=== PATIENT | female | born 1995 | race Caucasian/White ===

== ENCOUNTER 2021-04-18 17:07 | Inpatient (IN) | payer OTHER ==
[~2021-04-18] VITALS: Ht 175.3 cm; Wt 108.9 kg
[~2021-04-18 17:07] MED LIST: IBUPROFEN600 MG PO; NORCO 5-325 TA1 EACH PO; PRENATAL VITAM1 EAC5 PO; PRILOSEC OTC20 MG PO; SINGULAIR10 MG PO; ZYRTEC10 MG PO
[2021-04-18 17:51] LABS: HEMOGLOBIN 10.7 gm/dl (12.3-15.3); RED BLOOD COUNT 3.93 M/UL (4.00-5.10); WHITE BLOOD COUNT 10.5 K/UL (4.5-11.0)
[2021-04-18] MEDS ORDERED: CLARITIN10 M2 PO (17:51)
[2021-04-19] MEDS ORDERED: HYDROCODON-ACE1 EAC4 PO (16:35)
[2021-04-19] MEDS ORDERED: DOCUSATE SODIU100 MG PO (16:35)
[2021-04-19] MEDS ORDERED: IBUPROFEN600 MG PO (16:35)
[2021-04-20 04:45] LABS: HEMOGLOBIN 9.9 gm/dl (12.3-15.3)
== END 2021-04-20 14:48 | disposition home or self-care (01) | DRG 788 ==
LOC: GENOP 17:07 → OB 17:16
PROVIDERS: ADMIT Obstetrics & Gynecology
PROC: 10907ZC Drainage of Amniotic Fluid, Therapeutic from Products of Conception, Via Natural or Artificial Opening (ICD-10-PCS; 2021-04-19)
PROC: 10D00Z1 Extraction of Products of Conception, Low, Open Approach (ICD-10-PCS; principal; 2021-04-19 10:53)
DX: O69.0XX0 Labor and delivery complicated by prolapse of cord, not applicable or unspecified (principal); Z3A.39 39 weeks gestation of pregnancy; Z37.0 Single live birth
CPT/HCPCS: 36415; 81001; 82800; 85014; 85018; 85025; 90471; 90715; J0690; J1885; J2274; J2370; J2590; J2795; J3010; J7120; U0003